=== PATIENT | female | born 1975 | race Hispanic/Latino ===

== ENCOUNTER 2019-10-25 18:20 | Emergency (ER) | payer SELFPAY ==
[2019-10-25] MEDS ORDERED: NA CHLORIDE 0.9% 1,000 ML ONE (19:08)
[2019-10-25] MEDS ORDERED: KETOROLAC 30 MG/ML INJ ONE (19:08)
[2019-10-25 19:12] LABS: Urine Blood TRACE (NEG); Urine Glucose NEGATIVE (NEG); Urine Protein NEGATIVE (NEG); Urine Specific Gravity 1.025 (1.005-1.030); Urine pH 6.5 (5.0-7.0)
[2019-10-25 19:15] LABS: Urine Bacteria <20 /HPF (<20); Urine RBC <5 /HPF (NONE SEEN)
[2019-10-25 19:16] LABS: Urine Culture Reflex Order NOT NEEDED; Urine Mucus 1+ /HPF (NONE SEEN)
--- NOTE | 2019-10-25 19:27 | RAD REPORT ---
EXAM DESCRIPTION: CT - Stone Protocol - 10/25/2019 7:18 pm CLINICAL HISTORY: Abdominal pain. Right flank pain COMPARISON: None. TECHNIQUE: Computed axial tomography of the abdomen pelvis was obtained without oral or IV contrast. Lack of IV and oral contrast limits evaluation of solid organs, bowel, and vessels. Coronal reformat ananth images were obtained and reviewed. All CT scans are performed using dose optimization technique as appropriate and may include automated exposure control or mA/KV adjustment according to patient size. FINDINGS: A renal calculus is not seen. An ureteral calculus is not noted. A bladder calculus is not present. The liver, spleen, pancreas and adrenals appear grossly normal There is no evidence of diverticulitis. The appendix appears normal A 15 millimeter area sclerosis within the proximal right femur Minimal amount of free fluid may be physiologic IMPRESSION: Negative for a genitourinary calculus 15 millimeter area sclerosis within the proximal right femur is nonspecific. It may represent a bone island. It is recommended that the patient have a followup x-ray right femur in [address] ability
[2019-10-25 19:33] LABS: Absolute Lymphocytes (CBC) 0.4 K/uL (0.7-4.9); Basophils % 0.4 % (0-1.3); Hematocrit 35.8 % (36.0-45.0); Lymphocytes % 8.2 % (15.3-44.8); MPV 7.9 fL (7.6-11.3); RBC Red Blood Cell Count 4.47 M/uL (3.86-4.86)
[2019-10-25 19:45] LABS: ALT/SGPT 21 U/L (12-78); AST/SGOT 18 U/L (15-37); Alkaline Phosphatase 72 U/L (45-117); BUN Blood Urea Nitrogen 3 mg/dL (7-18); Bicarbonate 23 mmol/L (21-32); Bilirubin Direct < 0.1 mg/dL (0-0.2); Bilirubin Total 0.2 mg/dL (0.2-1.0); Glucose Level 117 mg/dL (74-106); Lipase 53 U/L (73-393); Potassium 3.4 mmol/L (3.5-5.1); Protein, Total 8.6 g/dL (6.4-8.2); Sodium Level 135 mmol/L (136-145)
[2019-10-25] MEDS ORDERED: FENTANYL CITR 100 MCG/2 ML ONE (20:09)
--- NOTE | 2019-10-25 20:29 | EDPHYS ---
Physician Documentation [facility] Name: Liz Chun Age: 44 yrs Sex: Female : 1975 Arrival Date: 10/25/2019 Time: 18:21 Bed 19 Private MD: ED Physician Robby Cottrell HPI: 10/25 18:37 This 44 yrs old Female presents to ER via Ambulatory with complaints of Flank cp Pain. 18:37 The patient complains of pain in the right mid back and right low back. The pain cp radiates to the right buttock. Onset: The symptoms/episode began/occurred 1 week(s) ago. 18:37 Associated signs and symptoms: Pertinent positives: diarrhea, radiating pain to right cp buttock, Pertinent negatives: fever, hematuria, vomiting. Severity of pain: in the emergency department the pain is unchanged despite home interventions. 18:37 The patient has not experienced similar symptoms in the past. 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 - Coronavirus screen:: The patient has NOT traveled to [place], [place], or [place] in the past 14 days. The patient has NOT had contact with known/suspected case of Coronavirus? Proceed with normal triage procedures. - Social history:: Smoking status: Patient denies any tobacco usage or history of. - Ebola Screening: : No symptoms or risks identified at this time. ROS: 18:45 Constitutional: Negative for body aches, chills, fever. cp 18:45 Eyes: Negative for injury, pain, redness, and discharge. cp 18:45 ENT: Negative for drainage from ear(s), ear pain, sore throat, difficulty swallowing, cp difficulty handling secretions. 18:45 Cardiovascular: Negative for chest pain, edema, palpitations. 18:45 Respiratory: Negative for cough, shortness of breath, wheezing. 18:45 Abdomen/GI: Positive for diarrhea, Negative for abdominal pain, vomiting, constipation, anorexia, bowel incontinence. 18:45 Back: Positive for flank pain, on the right, Negative for injury or acute deformity. 18:45 : Negative for difficulty urinating, bladder incontinence. 18:45 Skin: Negative for rash. 18:45 Neuro: Negative for altered mental status, headache, weakness. 18:45 All other systems are negative. Exam: 19:00 Constitutional: The patient appears in no acute distress, alert, awake, non-toxic, well cp developed, well nourished, uncomfortable. 19:00 Head/Face: Normocephalic, atraumatic. cp 19:00 Eyes: Periorbital structures: appear normal, Conjunctiva: normal, no exudate, no injection, Sclera: no appreciated abnormality, Lids and lashes: appear normal, bilaterally. 19:00 ENT: External ear(s): are unremarkable, Nose: is normal, Mouth: Lips: moist, Oral mucosa: pink and intact, moist, Posterior pharynx: is normal, airway is patent, no erythema, no exudate. 19:00 Neck: ROM/movement: is normal, is supple, without pain, no range of motions limitations, no nuchal rigidity. 19:00 Chest/axilla: Inspection: normal. 19:00 Cardiovascular: Rate: normal, Rhythm: regular, Edema: is not appreciated, JVD: is not appreciated. 19:00 Respiratory: the patient does not display signs of respiratory distress, Respirations: normal, no use of accessory muscles, no retractions, no splinting, no tachypnea, labored breathing, is not present, Breath sounds: are clear throughout, no decreased breath sounds. 19:00 Abdomen/GI: Inspection: abdomen appears normal, Bowel sounds: active, all quadrants, Palpation: abdomen is soft and non-tender, in all quadrants. 19:00 Back: pain, that is moderate, of the right mid back and right low back, ROM is painful, with all movement, vertebral tenderness, is not appreciated, Straight leg raises: of both lower extremities does not illicit pain. 19:00 Skin: no rash present. 19:00 Neuro: Orientation: to person, place \T\ time. Mentation: is normal, Motor: moves all fours, strength is normal, Sensation: is normal, Gait: is steady, Deep tendon reflexes are 2+ (normal) in the right patellar, right Achilles, left patellar and left Achilles. Vital Signs: 18:23 BP 164 / 90; Pulse 96; Resp 16; Temp 99.2(TE); Pulse Ox 100% on R/A; Weight 63.5 kg; hb Height 5 ft. (152.40 cm); Pain 9/10; 19:48 Pulse 92; Resp 16 S; Pulse Ox 100% on R/A; jd3 18:23 Body Mass Index 27.34 (63.50 kg, 152.40 cm) hb MDM: 18:33 Patient medically screened. cp 20:00 Differential diagnosis: nephrolithiasis, pyelonephritis, UTI, diverticulitis, cp pancreatitis, sciatica, spinal stenosis, cauda equina. 20:28 Data reviewed: vital signs, nurses notes, lab test result(s), radiologic studies, CT cp scan, and as a result, I will discharge patient. Counseling: I had a detailed discussion with the patient and/or guardian regarding: the historical points, exam findings, and any diagnostic results supporting the discharge/admit diagnosis, lab results, radiology results, the need for outpatient follow up, a family practitioner, to return to the emergency department if symptoms worsen or persist or if there are any questions or concerns that arise at home. Response to treatment: the patient's symptoms have markedly improved after treatment, and as a result, I will discharge patient. 10/25 18:49 Order name: Basic Metabolic Panel; Complete Time: 20: cp 10/25 20: Interpretation: Normal except: NA 135; K 3.4; GLUC 117; BUN 3; CRE 0.54. cp 10/25 18:49 Order name: CBC with Diff; Complete Time: 20: cp 10/25 20: Interpretation: Normal except: HGB 11.5; HCT 35.8; MCH 25.8; RDW 17.2; GERMAINE% 82.8; LYM% cp 8.2; LYMA 0.4. 10/25 18:49 Order name: Creatinine for Radiology; Complete Time: 20: cp 10/25 18:49 Order name: Hepatic Function; Complete Time: 20: cp 10/25 20: Interpretation: Normal except: TP 8.6; GLOB 4.6; A/G 0.9. cp 10/25 18:49 Order name: Lipase; Complete Time: 20: cp 10/25 20: Interpretation: LIP 53; Reviewed. cp 10/25 18:49 Order name: Urine Microscopic Only; Complete Time: 19:33 cp 10/25 19:33 Interpretation: Reviewed. cp 02 18:49 Order name: IV Saline Lock; Complete Time: 19:43 cp 10/25 18:49 Order name: Labs collected and sent; Complete Time: 19:43 cp 10/25 18:49 Order name: CT Stone Protocol; Complete Time: 19:33 cp 10/25 19:34 Interpretation: Report reviewed. cp 10/25 18:57 Order name: Urine Dipstick--Ancillary (enter results); Complete Time: 19:33 eb 10/25 19:33 Interpretation: Normal except: UKET 4+; UBLD TRACE. cp 10/25 18:57 Order name: Urine --Ancillary (enter results); Complete Time: 19:33 eb 10/25 18:49 Order name: Urine Dipstick-Ancillary (obtain specimen); Complete Time: 18:57 cp 10/25 18:49 Order name: Urine Test (obtain specimen); Complete Time: 18:57 cp Administered Medications: 19:43 Drug: NS 0.9% 1000 ml Route: IV; Rate: 1 bolus; Site: right antecubital; jd3 20:40 Follow up: Response: No adverse reaction; IV Status: Completed infusion; IV Intake: jd3 1000ml 19:43 Drug: TORadol - Ketorolac 15 mg Route: IVP; Site: right antecubital; jd3 20:10 Follow up: Response: No adverse reaction; Pain is unchanged, physician notified jd3 20:10 Drug: fentaNYL (PF) 25 mcg Route: IVP; Site: right antecubital; jd3 20:39 Follow up: Response: No adverse reaction; RASS: Alert and Calm (0) jd3 Disposition: 10/26 07:09 Co-signature as Attending Physician, Robby Cottrell MD. rn Disposition: 10/25/19 20:29 Discharged to Home. Impression: Low back pain - right. - Condition is Stable. - Discharge Instructions: Back Pain, Adult, Heat Therapy, Back Exercises. - Prescriptions for Lidoderm 5 % Topical adhesive patch,medicated - apply 1 patch by TRANSDERMAL route once daily As needed; 1 box. Cyclobenzaprine 10 mg Oral Tablet - take 1 tablet by ORAL route every 8 hours As needed no driving while taking medication; 20 tablet. Tramadol 50 mg Oral Tablet - take 1 tablet by ORAL route every 8 hours as needed; 12 tablet. Medrol (Ras) 4 mg Oral Tablets, Dose Pack - take 1 tablet by ORAL route as directed - follow package instructions; 1 packet. - Medication Reconciliation Form, Thank You Letter, Antibiotic Education, Prescription Opioid Use form. - Follow up: Private Physician; When: 2 - 3 days; Reason: Recheck today's complaints. - Problem is new. - Symptoms have improved. Signatures: Dispatcher [employer] EDMS Robby Cottrell MD MD rn Tavo Griffin PA PA cp Baxter, Heather, RN RN Margarito Henry RN RN jd3 Corrections: (The following items were deleted from the chart) 10/25 20:42 20:29 10/25/2019 20:29 Discharged to Home. Impression: Low back pain - right. Condition jd3 is Stable. Forms are Medication Reconciliation Form, Thank You Letter, Antibiotic Education, Prescription Opioid Use. Follow up: Private Physician; When: 2 - 3 days; Reason: Recheck today's complaints. Problem is new. Symptoms have improved. cp
--- NOTE | 2019-10-25 20:29 | ER ---
Nurse's Notes [facility] Name: Liz Chun Age: 44 yrs Sex: Female : 1975 Arrival Date: 10/25/2019 Time: 18:21 Bed 19 Private MD: Diagnosis: Low back pain-right Presentation: 10/25 18:24 Presenting complaint: Low back and left flank pain, diarrhea, and burning with hb urination x 1 week. Denies fever. Transition of care: patient was not received from another setting of care. Onset of symptoms was October 19, 2019. Risk Assessment: Do you want to hurt yourself or someone else? Patient reports no desire to harm self or others. Care prior to arrival: Medication(s) given: XL3 at 1300. 18:24 Method Of Arrival: Ambulatory hb 18:24 Acuity: BRANDEE 3 hb 20:40 Initial Sepsis Screen: Does the patient meet any 2 criteria? No. Patient's initial jd3 sepsis screen is negative. Does the patient have a suspected source of infection? No. Patient's initial sepsis screen is negative. 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 - Coronavirus screen:: The patient has NOT traveled to [place], [place], or [place] in the past 14 days. The patient has NOT had contact with known/suspected case of Coronavirus? Proceed with normal triage procedures. - Social history:: Smoking status: Patient denies any tobacco usage or history of. - Ebola Screening: : No symptoms or risks identified at this time. Screenin:30 Abuse screen: Denies threats or abuse. Nutritional screening: No deficits noted. rb1 Tuberculosis screening: No symptoms or risk factors identified. Fall Risk None identified. Assessment: 18:30 General: Appears uncomfortable, Behavior is calm, cooperative, Denies fever. Pain: rb1 Complains of pain in right flank Pain radiates to right leg Pain currently is 9 out of 10 on a pain scale. Pain began x 1 week. Neuro: Level of Consciousness is awake, alert, obeys commands, Oriented to person, place, time, situation. Cardiovascular: Capillary refill < 3 seconds is brisk in bilateral fingers. Respiratory: Airway is patent Respiratory effort is even, unlabored, Respiratory pattern is regular, symmetrical. GI: Reports diarrhea, since this morning. : Reports burning with urination. Derm: Skin is pink, warm \T\ dry. Musculoskeletal: Range of motion: intact in all extremities. 19:47 General: Appears in no apparent distress. uncomfortable, Behavior is calm, cooperative, jd3 appropriate for age. Pain: Complains of pain in right low back Pain radiates to right leg Quality of pain is described as shooting. Neuro: Level of Consciousness is awake, alert, obeys commands, Oriented to person, place, time, situation. Cardiovascular: Capillary refill < 3 seconds Patient's skin is warm and dry. Respiratory: Airway is patent Respiratory effort is even, unlabored, Respiratory pattern is regular, symmetrical, Denies cough, shortness of breath. GI: Reports diarrhea, Patient currently denies nausea, vomiting. : Reports burning with urination. EENT: No signs and/or symptoms were reported regarding the EENT system. Derm: Skin is intact, Skin is dry, Skin is normal, Skin temperature is warm. Musculoskeletal: Circulation, motion, and sensation intact. Range of motion: intact in all extremities. 20:41 Reassessment: Patient appears in no apparent distress at this time. Patient and/or jd3 family updated on plan of care and expected duration. Pain level reassessed. Patient is alert, oriented x 3, equal unlabored respirations, skin warm/dry/pink. pt reported understanding of discharge instructions. even and steady gait upon discharge. Vital Signs: 18:23 BP 164 / 90; Pulse 96; Resp 16; Temp 99.2(TE); Pulse Ox 100% on R/A; Weight 63.5 kg; hb Height 5 ft. (152.40 cm); Pain 9/10; 19:48 Pulse 92; Resp 16 S; Pulse Ox 100% on R/A; jd3 18:23 Body Mass Index 27.34 (63.50 kg, 152.40 cm) hb ED Course: 18:21 Patient arrived in ED. as 18:23 Arm band placed on. hb 18:27 Triage completed. hb 18:29 Tavo Griffni PA is PHCP. cp 18:29 Robby Cottrell MD is Attending Physician. cp 18:30 Patient has correct armband on for positive identification. Bed in low position. Call rb1 light in reach. Side rails up X 1. Pulse ox on. NIBP on. 18:48 Urine collected: clean catch specimen, clear, cristino colored. jb1 18:57 Kassidy Sawant, RN is Primary Nurse. rb1 19:06 CT completed. Patient tolerated procedure well. Patient moved back from CT. bq 19:18 Initial lab(s) drawn, by me, sent to lab. Inserted saline lock: 22 gauge in right kj1 antecubital area, using aseptic technique. Blood collected. 19:20 CT Stone Protocol In Process Unspecified. EDMS 20:40 No provider procedures requiring assistance completed. IV discontinued, intact, jd3 bleeding controlled, No redness/swelling at site. Pressure dressing applied. Administered Medications: 19:43 Drug: NS 0.9% 1000 ml Route: IV; Rate: 1 bolus; Site: right antecubital; jd3 20:40 Follow up: Response: No adverse reaction; IV Status: Completed infusion; IV Intake: jd3 1000ml 19:43 Drug: TORadol - Ketorolac 15 mg Route: IVP; Site: right antecubital; jd3 20:10 Follow up: Response: No adverse reaction; Pain is unchanged, physician notified jd3 20:10 Drug: fentaNYL (PF) 25 mcg Route: IVP; Site: right antecubital; jd3 20:39 Follow up: Response: No adverse reaction; RASS: Alert and Calm (0) jd3 Intake: 20:40 IV: 1000ml; Total: 1000ml. jd3 Outcome: 20:29 Discharge ordered by . cp 20:40 Discharged to home ambulatory, with family. jd3 20:40 Condition: stable 20:40 Discharge instructions given to patient, family, Instructed on discharge instructions, follow up and referral plans. medication usage, Demonstrated understanding of instructions, follow-up care, medications, Prescriptions given X X 5 20:42 Patient left the ED. jd3 Signatures: Dispatcher [employer] EDMS Greg Robles jb1 Guerline Klein bq Lynn Ellis as Tavo Griffin PA PA cp Kassidy Sawnat, NEVAEH RN rb1 Shu Porter RN RN Margarito Henry RN RN jd3 Carri Mata kj1 Corrections: (The following items were deleted from the chart) 18:27 18:23 BP 164 / 90; Pulse 96bpm; Resp 16bpm; Pulse Ox 100% RA; Temp 99.2F Temporal; 63.5 hb kg; Height 5 ft.; BMI: 27.3; Pain 8/10; hb
[2019-10-25 20:59] VITALS: O2SAT 100
[2019-10-25 21:00] VITALS: BP 164/90; TEMP 99.2
== END 2019-10-25 20:42 | disposition home or self-care (01) ==
LOC: ER 18:20
DX: M54.5 Low back pain (principal)
CPT/HCPCS: 36415; 74176; 76377; 80048; 80076; 81003; 81015; 81025; 83690; 85025; 96361; 96374; 96375; 99284; J3010; J7030